=== PATIENT | female | born 1990 | race Asian ===

== ENCOUNTER 2019-09-04 12:21 | Emergency (ER) | payer OTHER ==
[~2019-09-04] VITALS: Ht 152.4 cm; Wt 52.0 kg
[2019-09-04 12:50] LABS: BASOPHILS # (AUTO) 0.03 x10^3/uL (0-0.1); BASOPHILS % (AUTO) 0 % (0-1); EOSINOPHILS % (AUTO) 1 % (1-7); LYMPHOCYTES # (AUTO) 2.07 x10^3/uL (1-3.4); LYMPHOCYTES % (AUTO) 24 % (22-44); MD NO; MEAN CORPUSCULAR HEMOGLOBIN 29.1 pg (27.0-34.8); MEAN CORPUSCULAR HGB CONC 34.3 g/dL (32.4-35.8); MEAN CORPUSCULAR VOLUME 84.8 fL (80-100); MEAN PLATELET VOLUME 7.4 fL (7.4-10.4); MONOCYTES # (AUTO) 0.34 x10^3/uL (0.2-0.8); MONOCYTES % (AUTO) 4 % (2-9); NEUTROPHILS # (AUTO) 6.27 x10^3/uL (1.8-6.8); NEUTROPHILS % (AUTO) 71 % (42-75); PLATELET COUNT 277 x10^3/uL (130-400); RED BLOOD COUNT 4.55 x10^6/uL (3.82-5.3); RED CELL DISTRIBUTION WIDTH 12.9 % (9.6-15.2)
--- NOTE | 2019-09-04 12:56 | NUR ---
JASON WATTS FROM HER THERAPIST OFFICE HEALING MINDS ON A HOLD HOLD REPORTS INCREASING DESIRE TO NOT LIVE AND WROTE A NOTE TO HER RE NOT WANTING TO LIVE AND GOING AWAY PLACED IN A SECURED ROOM AND BELONGINGS REMOVED AND SECURED ERP TO THE BS PT COOPERATIVE A04
--- NOTE | 2019-09-04 13:04 | NUR ---
Received report from SUNSHINE Swenson. All questions answered. Assuming care of pt at this time.
[2019-09-04 13:08] LABS: ALBUMIN 3.6 g/dL (3.4-5.0); ANION GAP 9 mmol/L (5-15); CALCIUM 9.4 mg/dL (8.5-10.1); CHLORIDE 108 mmol/L (98-107); CREATININE 0.75 mg/dL (0.55-1.02)
[2019-09-04 13:10] LABS: SALICYLATE LEVEL < 1.7 mg/dL (2.8-20.0)
[2019-09-04 13:19] LABS: AMPHETAMINE SCREEN, URINE Negative (Negative); BARBITURATE SCREEN, URINE Negative (Negative); BENZODIAZEPINE SCREEN, URINE Negative (Negative); CANNABINOID SCREEN, URINE Negative (Negative); COCAINE SCREEN, URINE Negative (Negative); METHADONE SCREEN, URINE Negative (Negative); OPIATE SCREEN, URINE Negative (Negative)
[2019-09-04] MEDS ORDERED: SERT50TA PO (13:39)
--- NOTE | 2019-09-04 13:40 | NUR ---
LATE NOTE ENTRY FOR 1305: PSYCH SENIOR AUTOMATION ENGINEER AT BEDSIDE SPEAKING TO PT AND SPOUSE. NO NEEDS EXPRESSED AT THIS TIME. LUNCH TRAY ORDER FOR PT. PT IN SI/HI SECURED ROOM WITH CRAIG DOWN AND PERSONAL BELONGINGS REMOVED PRIOR TO THIS RN ASSUMING CARE. SITTER NEAR DOORWAY IN DIRECT LINE OF SIGHT FOR OBSERVATION.
--- NOTE | 2019-09-04 14:37 | NUR ---
THROUGHPUT: PACKET FAXED TO [facility], [facility], [facility] & [facility].
--- NOTE | 2019-09-04 15:01 | NUR ---
Pt provided lunch tray. Sitter near doorway in direct line of sight for observation. Pt's spouse at bedside. No needs expressed at this time.
--- NOTE | 2019-09-04 15:15 | NUR ---
Provided medicaiton per EMAR. Pt appreciative. Pt's spouse at bedside. Pt denies prior history of SA. Pt denies plan for SA at this time. Provided pt warm tea per request. Called housekeeping to request hospital bed for pt. Room remains secured for SI/HI. Sitter near doorway in direct line of sight for observation.
[2019-09-04] MEDS ORDERED: SERT25TA3 PO (15:18)
--- NOTE | 2019-09-04 17:25 | NUR ---
LATE NOTE FOR 1629: Ordered hospital bed and dinner tray for pt. Pt sitting on gurney watching TV with spouse at bedside. Sitter in direct line of sight for observation.
--- NOTE | 2019-09-04 17:56 | NUR ---
PROVIDED RN TO RN REPORT TO SUNSHINE LOZADA AT [facility]. ALL QUESTIONS ANSWERED.
--- NOTE | 2019-09-04 18:53 | NUR ---
bedside report from дмитрий mcgraw
--- NOTE | 2019-09-04 19:00 | NUR ---
LATE NOTE ENTRY FOR 1730: Pt provided hospital bed and meal tray. Pt appreciative. Pt and spouse sitting in room. Sitter near doorway in direct line of sight for observation. No other needs requested at this time.
--- NOTE | 2019-09-04 19:00 | NUR ---
Provided bedside report to SUNSHINE Florian. All questions answered. Chiqui RN to assume care of pt at this time.
--- NOTE | 2019-09-04 20:00 | NUR ---
pt resting on hospital bed with at bedside. room secured and sitter at doorway for frequent checks.
[2019-09-04] MEDS ORDERED: SERTRALINE 50MG TABLET PO SCH (21:00)
--- NOTE | 2019-09-04 21:00 | NUR ---
pt resting on hospital bed with at bedside. room secured and sitter at doorway for frequent checks.
--- NOTE | 2019-09-04 23:00 | NUR ---
pt resting on hospital bed with eyes closed, respirations even and unlabored. room secured and sitter at doorway for frequent checks.
[2019-09-04] MEDS ORDERED: SERTRALINE 50MG TABLET ONE (23:57)
--- NOTE | 2019-09-05 00:09 | NUR ---
pt medicated per emar. questions answered and updated on POC.
--- NOTE | 2019-09-05 02:00 | NUR ---
pt resting calmly with eyes closed, nad, respirations even and unlabored, room secured, sitter at doorway for continous monitoring
--- NOTE | 2019-09-05 02:50 | NUR ---
pt resting with eyes closed, equal chest rise/fall observed, sitter at bedside for continous monitoring
--- NOTE | 2019-09-05 03:58 | NUR ---
pt resting in bed, repositioned self, equal chest rise/fall observed, sitter at doorway for continous monitoring
--- NOTE | 2019-09-05 04:57 | NUR ---
pt rsting caalmly with eyes closed, nad, equal chest rise/fall observed, sitter at doorway for continous monitoring. breakfast tray ordered
--- NOTE | 2019-09-05 05:05 | NUR ---
report given to дмитрий grimes. distance education teacher transferring pt to ed room 40
--- NOTE | 2019-09-05 05:15 | NUR ---
Assumed care of pt from SUNSHINE Qureshi Pt alert and interactive. Water provided. Call light at bedside. Sitter remains in view of pt.
--- NOTE | 2019-09-05 06:00 | NUR ---
Pt alert, resting on bed watching TV. Pt remains in view of sitter.
--- NOTE | 2019-09-05 06:53 | NUR ---
report received from sydney choe.
--- NOTE | 2019-09-05 07:01 | NUR ---
Report given to SUNSHINE Stanton
--- NOTE | 2019-09-05 07:26 | NUR ---
hospital socks given at this time.
--- NOTE | 2019-09-05 08:34 | NUR ---
MEAL TRAY PROVIDED AT THIS TIME.
[2019-09-05 08:44] VITALS: BP 114/80
--- NOTE | 2019-09-05 09:37 | NUR ---
pt resting in hospital bed. pt's aox4. resps even and unlabored. sitter monitoring from hallway for safety. room remains secure.
--- NOTE | 2019-09-05 10:20 | NUR ---
pt's at bedside at this time. sitter monitoring from [facility] for safety. room remains secure.
--- NOTE | 2019-09-05 11:08 | NUR ---
MEAL TRAY ORDERED AT THIS TIME.
--- NOTE | 2019-09-05 11:50 | NUR ---
psych credit card interviewer at bedside at this time.
--- NOTE | 2019-09-05 12:42 | NUR ---
MEAL TRAY PROVIDED AT THIS TIME.
[2019-09-05] MEDS ORDERED: ARIPIPRAZOLE 2 MG TABLET PO SCH (13:00)
--- NOTE | 2019-09-05 13:08 | NUR ---
MEDICATION ORDERED FROM PHARMACY AT THIS TIME.
--- NOTE | 2019-09-05 13:30 | NUR ---
LUNCH RN: PT MEDICATED PER MAR PRIOR TO DC. 1 BAG OF BELONGINGS GIVEN TO PT.
== END 2019-09-05 13:33 | disposition home or self-care (01) ==
LOC: ED 14:44
DX: F33.3 Major depressive disorder, recurrent, severe with psychotic symptoms (principal); R45.851 Suicidal ideations
CPT/HCPCS: 36415; 80048; 80307; 82040; 84443; 84703; 85025; 99284; Q0177

== ENCOUNTER 2020-06-27 18:24 | Emergency (ER) | payer OTHER ==
[~2020-06-27] VITALS: Ht 152.4 cm; Wt 53.0 kg
[~2020-06-27 18:24] MED LIST: OMNIPAQUE 350 MG/ML, 100ML BOTTLE ONE; SERT25TA3 PO; SERT50TA PO
[2020-06-27] MEDS ORDERED: SODIUM CHLORIDE FLUSH 10ML SYR IVF ONE ×2 (19:00→22:00)
[2020-06-27 21:13] LABS: BASOPHILS % (AUTO) 1 % (0-1); EOSINOPHILS % (AUTO) 1 % (1-7); LYMPHOCYTES % (AUTO) 25 % (22-44); MD NO; MEAN CORPUSCULAR HEMOGLOBIN 28.6 pg (27.0-34.8); MEAN PLATELET VOLUME 7.4 fL (7.4-10.4); MONOCYTES % (AUTO) 5 % (2-9); NEUTROPHILS % (AUTO) 69 % (42-75); PLATELET COUNT 312 x10^3/uL (130-400); RED BLOOD COUNT 4.78 x10^6/uL (3.82-5.3); RED CELL DISTRIBUTION WIDTH 13.3 % (9.6-15.2)
[2020-06-27 21:24] LABS: ALANINE AMINOTRANSFERASE 15 U/L (12-78); ALBUMIN 3.7 g/dL (3.4-5.0); ANION GAP 9 mmol/L (5-15); CALCIUM 9.2 mg/dL (8.5-10.1); CHLORIDE 105 mmol/L (98-107)
--- NOTE | 2020-06-27 21:27 | NUR ---
PRINT PRODUCTION COORDINATOR: PT. TO ROOM FROM LOBBY AT THIS TIME.
[2020-06-27 21:28] LABS: ALKALINE PHOSPHATASE 63 U/L (45-117); BILIRUBIN,TOTAL 0.3 mg/dL (0.2-1.0); TOTAL PROTEIN 8.2 g/dL (6.4-8.2)
--- NOTE | 2020-06-27 21:45 | NUR ---
PT TO ROOM WITH RN, AMBULATED STEADILY. NAD NOTED. PT TO RESTROOM TO PROVIDE UA.
--- NOTE | 2020-06-27 22:20 | NUR ---
PT REPORTS INTERMITTENT RUQ PAIN X ONE WEEK. WORSENS WITH FOOD. PAIN DOES NOT RADIATE. MILD NAUSEA, VOMITING SEVERAL DAYS AGO. DENIES HEMATEMESIS/DIARRHEA/DYSURIA. ON EXAM, ABD DIFFUSELY TENDER. LMP: CURRENT. BP/SPO2 MONITOR IN PLACE. VSS. ERP AT BEDSIDE FOR INITIAL ASSESSMENT. IV ESTABLISHED. UA COLLECTED AND SENT
[2020-06-27 22:39] LABS: MICROSCOPIC INDICATED
--- NOTE | 2020-06-27 23:17 | NUR ---
ERP AT BEDSIDE TO DISCUSS FINDINGS/POC
[2020-06-27 23:54] VITALS: BP 102/68
--- NOTE | 2020-06-27 23:55 | NUR ---
PT NAD, RESTING ON GURNEY, APPEARS COMFORTABLE, NO CHANGE IN CONDITION, WCTM. PT CHART UP FOR RECHECK.
--- NOTE | 2020-06-28 00:31 | NUR ---
DC EDUCATION PROVIDED, PT DEMONSTRATES UNDERSTANDING. PT AMBULATED STEADILY TO DC WITH RN AND SO. SO TO TRANSPORT PT HOME.
== END 2020-06-28 00:48 | disposition home or self-care (01) ==
LOC: ED 18:54
DX: R10.84 Generalized abdominal pain (principal); R11.10 Vomiting, unspecified
CPT/HCPCS: 36415; 74177; 76700; 80053; 81001; 83690; 84703; 85025; 87086; 99285; Q9967